=== PATIENT | male | born 1940 | race Caucasian/White ===

== ENCOUNTER → 2021-04-01 14:34 | Outpatient (CLI) | payer MEDICARE, SELFPAY ==
--- NOTE | ~2021-04-01 | XR_ITS ---
EXAMINATION: XR lumbar spine 2-3V DATE: 04/01/2021 14:49 INDICATION: Low back pain. TECHNIQUE: Anteroposterior and lateral views of the lumbar spine, and cone-down lateral view of the l umbosacral junction were obtained. COMPARISON: Contrast dated 04/2607 and lumbar spine MR dated 05/15/2007 FINDINGS: Minimal lumbar dextrocurvature. 2 mm retrolisthesis L2 on L3. Vertebral body heights are normal. Mode rate disc height loss at L4-L5 with central disc calcification. Moderate to severe disc height loss w ith vacuum phenomena at the remaining lumbar levels. Additional mild to moderate disc height loss at the visualized lower thoracic spine. Multilevel moderate to severe lower lumbar predominant facet ost eoarthritis. Sacral arches are intact. Mild bilateral sacral iliac osteoarthritis. Atherosclerotic ab dominal aorta. IMPRESSION: 1. Progression of now severe lumbar spondylosis. Reviewed, dictated and finalized at location A.
== END ==
PROVIDERS: PCP Family Medicine Adolescent Medicine; Visit Provider Physician Assistant
DX: M54.5 Low back pain (principal); M47.816 Spondylosis without myelopathy or radiculopathy, lumbar region
CPT/HCPCS: 72100

== ENCOUNTER → 2021-05-17 12:29 | Outpatient (CLI) | payer MEDICARE, SELFPAY ==
--- NOTE | ~2021-05-17 | XR_ITS ---
XR chest 2V 05/17/2021 12:38 Indication: Hypertension. Lymphadenopathy. Procedure: 2 view chest Comparison: No prior studies for comparison. Findings: Heart size normal. No focal air space disease, pulmonary edema, pleural effusion or suspect ed pneumothorax. There is diffuse idiopathic skeletal hyperostosis (DISH) of the thoracic spine. Impression: 1: No acute cardiopulmonary disease. Reviewed, dictated and finalized at location A. 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
== END ==
PROVIDERS: PCP Family Medicine Adolescent Medicine; Visit Provider Family Medicine Adolescent Medicine
DX: L29.9 Pruritus, unspecified (principal); I10 Essential (primary) hypertension
CPT/HCPCS: 71046

== ENCOUNTER → 2021-06-22 14:17 | Outpatient (CLI) | payer MEDICARE, SELFPAY ==
--- NOTE | ~2021-06-22 | MR_ITS ---
EXAMINATION: MR thoracic spine wo con EXAM DATE: 06/22/2021 15:20 INDICATION: Preoperative examination for spine stimulator. Chronic back pain. TECHNIQUE: Multi-sequential, multiplanar MR images of the thoracic spine were obtained without contra st. Sagittal T1, T2, T2 fat saturation, axial T2 weighted images reviewed. There is no prior study for comparison. FINDINGS: Moderate diffuse loss of thoracic disc height and probably partial osseous fusion of some o f the levels. Thoracic spinal canal is widely patent. Mild lumbar dextroscoliosis, thoracic levoscoli osis. There are scattered focal signal abnormalities consistent with hemangiomata, otherwise without focal suspicious marrow signal abnormalities. There is mild to moderate thoracic facet arthropathy, c ausing no more than mild neural foraminal stenosis at any given level. Paraspinal soft tissue is unre markable. IMPRESSION: 1. Mild thoracolumbar scoliosis. 2. Moderate in the lower lumbar disc disease, mild to moderate arthropathy. Reviewed, dictated and finalized at location B. PPER
== END ==
PROVIDERS: PCP Family Medicine Adolescent Medicine; Visit Provider Pain Medicine Pain Medicine
DX: Z01.818 Encounter for other preprocedural examination (principal); M47.816 Spondylosis without myelopathy or radiculopathy, lumbar region; M41.9 Scoliosis, unspecified
CPT/HCPCS: 72146

== ENCOUNTER → 2021-08-25 07:32 | Outpatient (CLI) | payer MEDICARE, SELFPAY ==
--- NOTE | ~2021-08-25 | US_ITS ---
US abdomen limited DATE: 08/25/2021 08:36 INDICATION: Right upper quadrant abdominal pain, upset stomach TECHNIQUE: Real-time imaging of liver, pancreas, gallbladder areas COMPARISON: None FINDINGS: The pancreas is partially obscured by bowel gas, not optimally evaluated. Hepatic steatosis. Normal hepatopedal portal venous flow direction. No gallstones or gallbladder wall thickening or abnormal pericholecystic fluid collection. Negative s onographic Hudson's sign. The common bile duct measures 4 mm, normal. Incidentally noted is mild right hydronephrosis. IMPRESSION: Pancreas is obscured by bowel gas Mild right hydronephrosis Reviewed, dictated and finalized at Location A. US abdomen limited Reviewed, dictated and finalized at location B. 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
== END ==
PROVIDERS: PCP Family Medicine Adolescent Medicine; Visit Provider Physician Assistant
DX: R10.11 Right upper quadrant pain (principal); N13.30 Unspecified hydronephrosis
CPT/HCPCS: 76705

== ENCOUNTER → 2021-09-09 14:48 | Outpatient (CLI) | payer MEDICARE, SELFPAY ==
--- NOTE | ~2021-09-09 | US_ITS ---
US renal BI 09/09/2021 15:06 Procedure: Realtime transabdominal ultrasound of the kidneys and bladder. Indication: Stage III chronic kidney disease. Comparison: 08/25/2021 Findings: Renal echotexture is normal bilaterally without contour deforming mass or renal calculus. T he right kidney measures 10.7 cm and left kidney measures 12.3 cm. There are left renal cysts, larges t measuring 3.8 cm maximum dimension. There is mild right hydronephrosis. Bladder within normal limit s. Impression: 1: Mild right hydronephrosis. 2: Left renal cysts. Reviewed, dictated and finalized at location A. T CUSTODIAN Impression: 1: Mild right hydronephrosis. 2: Left renal cysts.
== END ==
PROVIDERS: PCP Family Medicine Adolescent Medicine; Visit Provider Family Medicine Adolescent Medicine
DX: N18.31 Chronic kidney disease, stage 3a (principal); N40.0 Benign prostatic hyperplasia without lower urinary tract symptoms; N13.30 Unspecified hydronephrosis; N28.1 Cyst of kidney, acquired
CPT/HCPCS: 76775

== ENCOUNTER → 2022-01-19 13:39 | Outpatient (CLI) | payer MEDICARE, SELFPAY ==
--- NOTE | ~2022-01-19 | XR_ITS ---
XR thoracic spine 3V DATE: 01/19/2022 14:35 INDICATION: Spinal cord stimulator TECHNIQUE: AP, lateral and swimmer views COMPARISON: 06/22/2021 MR thoracic spine FINDINGS: There is osteopenia. Mild levoscoliosis of the lower thoracic and lumbar spine. There is mild degenerative spurring of the thoracic spine. No fracture or bone destruction is detected. The thoracic pedicles appear intact. No paraspinal soft tissue thickening. Thoracic spine neurostimulator lead overlies the left posterolateral thoracic spinal canal at the T8 level. IMPRESSION: Osteopenia Mild degenerative spurring Mild scoliosis Thoracic spine neurostimulator lead posterolaterally on the left at approximately T8 Reviewed, dictated and finalized at location A. IMPRESSION: Osteopenia Mild degenerative spurring Mild scoliosis Thoracic spine neurostimulator lead posterolaterally on the left at approximate ly T8
--- NOTE | ~2022-01-19 | XR_ITS ---
XR lumbar spine min 4V DATE: 01/19/2022 14:35 INDICATION: Lumbar radiculopathy TECHNIQUE: AP, lateral, bilateral oblique and coned lateral lumbosacral views COMPARISON: 03/28/2021 lumbar spine FINDINGS: There is osteopenia. Probable hemangioma of T10. There is mild dextro scoliosis of the lumbar spine. There is severe degenerative disc disease throughout the lumbar spine. There is associated minimal re trolisthesis at L2-3. No fracture or bone destruction is evident. The lumbar pedicles appear intact. The sacroiliac joints are unremarkable. Battery pack overlies the left back, with neurostimulator lead wires extending toward the thoracic sp inal canal. Abdominal aortic calcification without evidence of aneurysm. IMPRESSION: Osteopenia T10 probable hemangioma Severe degenerative disc disease of the lumbar and lumbosacral spine Reviewed, dictated and finalized at location A.
== END ==
PROVIDERS: PCP Family Medicine Adolescent Medicine; Visit Provider Physician Assistant
DX: M54.16 Radiculopathy, lumbar region (principal); Z96.89 Presence of other specified functional implants; M85.88 Other specified disorders of bone density and structure, other site; M51.37 Other intervertebral disc degeneration, lumbosacral region; Z96.82 Presence of neurostimulator; M41.84 Other forms of scoliosis, thoracic region
CPT/HCPCS: 72072; 72110

== ENCOUNTER 2022-03-01 13:22 | Outpatient (CLI) | payer MEDICARE, SELFPAY ==
--- NOTE | 2022-03-01 14:21 | WPDPFTINT ---
PFT Procedure Performed PFT Procedure Performed Spirometry w/o Bronchodil PFT Interpretation This is a pulmonary function test with spirometry. The test was performed and results interpreted in accordance with the 2019 and 2005 ATS/ERS Task Force guidelines respectively using the Global Lung Function Initiative-2012 reference equations. Patient demonstrated good effort and cooperation. Reproducibility criteria were met. The quality of the spirometry maneuver was Grade A. Findings: Spirometry: the contour the expiratory flow tracing is normal. The contour of the inspiratory flow tracing is incomplete in all efforts and cannot be evaluated. The FVC is 3.37 L, 89% predicted. The FEV1 is 2.80 L, 100% predicted. The FEV1: FVC ratio was 83%. Impression: The inspiratory flow tracing is incomplete and cannot be evaluated. The spirometry is normal without evidence of an obstructive abnormality. There are no prior studies for comparison
== END 2022-03-01 13:23 | disposition home or self-care (01) ==
LOC: ANHPFT 13:23
PROVIDERS: PCP Family Medicine Adolescent Medicine; Visit Provider Family Medicine Adolescent Medicine
DX: R06.00 Dyspnea, unspecified (principal)
CPT/HCPCS: 94375

== ENCOUNTER 2023-12-17 09:37 | Outpatient (CLI) | payer MEDICARE, SELFPAY ==
--- NOTE | ~2023-12-17 | US_ITS ---
US renal BI Ordering provider: Harry Sotelo MD History: . N18.32 - Chronic kidney disease, stage 3b . Comparison: None. Technique: Ultrasound bilateral kidneys. Findings: RIGHT KIDNEY: Measures 9.9x 4.5x 5.6 cm in length which is normal in size. No renal cysts. No renal m ass. Echogenic foci are noted which is suggestive of stones with the largest measures 0.4x 0.6 x 0.4 cm. Otherwise, normal echotexture and contour. No hydronephrosis. Normal renal cortical thickness. LEFT KIDNEY: Measures 10.9x 5.4x 5.8 cm in length which is normal in size. Cysts seen measuring 2.5 x 2.1 x 2 cm The lateral inferior aspect and measuring 4.5 x 3.8 x 4.2 cm in the medial inferior. No r enal mass or visualized echogenic stones. Otherwise, normal echotexture and contour. No hydronephrosi s. Normal renal cortical thickness. BLADDER: Normal. IMPRESSION: Stone in the right kidney. Cysts in the left kidney. Reviewed, dictated and finalized at location A.
== END 2023-12-17 09:38 ==
LOC: MICIMG 09:38
PROVIDERS: PCP Family Medicine Adolescent Medicine; Visit Provider Internal Medicine Nephrology
DX: N18.32 Chronic kidney disease, stage 3b (principal); N28.1 Cyst of kidney, acquired; N20.0 Calculus of kidney
CPT/HCPCS: 76775

== ENCOUNTER 2024-03-15 09:33 | Emergency (ER) | payer MEDICARE, SELFPAY ==
--- NOTE | 2024-03-15 09:36 | ED.GENADULT ---
HPI - General Adult General Chief complaint: Skin/Abscess/Foreign Body Stated complaint: L HAND SKIN TEAR Time Seen by Provider: 03/15/24 09:45 Source: patient, RN notes reviewed and old records reviewed Mode of arrival: ambulatory Limitations: no limitations History of Present Illness HPI narrative: 83-year-old male presents to the [facility] with complaints of a skin tear to his left hand. States that he was on a cruise tripped and fell cutting on piece of metal. Occurred March 09, 6 days ago Onset (ago): day(s) (6) Treatments prior to arrival: other (Wound cleaning and Vaseline) Related Data Home Medications Medication Instructions Recorded Confirmed aspirin 81 mg tablet,delayed 81 mg PO DAILY 02/14/21 03/15/24 release coenzyme Q10 100 mg capsule 100 mg PO DAILY 02/14/21 03/15/24 (CoQ-10) acetaminophen 500 mg capsule 1,000 mg PO BID PRN Pain (Scale 09/02/21 03/15/24 Score 4-6) melatonin 10 mg capsule 10 mg PO QHS 09/02/21 03/15/24 carvedilol 12.5 mg tablet 12.5 mg PO BID 10/16/23 03/15/24 cetirizine 10 mg capsule (Zyrtec) 10 mg PO DAILY PRN allergies 10/16/23 03/15/24 fluticasone propionate 50 2 spray intranasal DAILY 10/16/23 03/15/24 mcg/actuation nasal spray,suspension (Flonase Allergy Relief) gabapentin 100 mg capsule 100 mg PO DAILY 10/16/23 03/15/24 iron 18 mg tablet 18 mg PO DAILY 10/16/23 03/15/24 qbuqoqpe-yl-futyb 300 mcg-K 60 1 tablet PO DAILY 10/16/23 03/15/24 mcg-lycop 600 mcg-lutein 300 mcg tablet (Centrum Silver Men) psyllium 500 mg capsule 0.52 g PO TID 10/16/23 03/15/24 fluticasone fur. 100 mcg-umeclid 1 inh inhalation DAILY 02/19/24 03/15/24 62.5 mcg-vilant 25 mcg inhalat.powder (Trelegy Ellipta) Allergies Allergy/AdvReac Type Severity Reaction Status Date / Time No Known Allergies Allergy Verified 03/15/24 09:40 Review of Systems Review of Systems: All systems reviewed & are unremarkable except as noted in HPI and below Constitutional: Constitutional: Reports no additional constitutional complaints Eyes: Eyes: Reports no additional eye complaints ENT: Reports system reviewed and no additional complaints, except as documented Cardiovascular: Cardiovascular: Reports no additional cardiovascular complaints, Denies chest pain and Denies dyspnea Respiratory: Respiratory: Reports no additional respiratory complaints, Denies chest congestion, Denies cough and Denies dyspnea Gastrointestinal: Gastrointestinal: Reports no additional gastrointestinal complaints, Denies abdominal pain, Denies nausea and Denies vomiting Musculoskeletal: Musculoskeletal: Reports no additional musculoskeletal complaints Integumentary/Breasts: Skin/Breast: Reports as per HPI and Reports wounds (Skin tear dorsal left hand, or by 1 cm. Already healing) Neurologic: Reports system reviewed and no additional complaints, except as documented Psychiatric: Psychiatric: Reports no additional psychiatric complaints Allergic/Immunologic: Allergic/Immunologic: Reports no additional allergic/immunologic complaints PMFSH Past Medical History Medical History Aortic atherosclerosis BPH (benign prostatic hyperplasia) Chronic anemia Coronary artery disease with stable angina pectoris Diverticula of intestine Diverticulitis Hepatic steatosis Ultrasound 08/25/2021. Presbycusis Pure hypercholesterolemia, unspecified Surgical History Surgical History History of appendectomy Family History Family History Father Cerebrovascular accident Sibling FH: throat cancer Diabetes mellitus Mother Carcinoma of colon Hypertension Grandparent Diabetes mellitus Social History Social History Smoking status: Never smoker Second hand tobacco smoke exposure: No Alcohol intake: c
[2024-03-15 09:45] VITALS: BP 148/62; PULSE 65; RESP 18; TEMP 36.6; O2SAT 100
== END 2024-03-15 10:09 | disposition home or self-care (01) ==
PROVIDERS: Emergency Provider Nurse Practitioner; PCP Family Medicine Adolescent Medicine
DX: S61.412A Laceration without foreign body of left hand, initial encounter (principal); W19.XXXA Unspecified fall, initial encounter; I70.0 Atherosclerosis of aorta; N40.0 Benign prostatic hyperplasia without lower urinary tract symptoms; I25.110 Atherosclerotic heart disease of native coronary artery with unstable angina pectoris; K76.0 Fatty (change of) liver, not elsewhere classified; E78.00 Pure hypercholesterolemia, unspecified; D64.9 Anemia, unspecified; Z79.82 Long term (current) use of aspirin
CPT/HCPCS: 99213; G0463

== ENCOUNTER 2024-03-31 10:54 | Outpatient (CLI) | payer MEDICARE, SELFPAY ==
--- NOTE | ~2024-03-31 | XR_ITS ---
3 VIEWS MANDIBLE Ordering provider: Tamiko Middleton APRN History: . R22.0 - Localized swelling, mass and lump, head . Comparison: None. FINDINGS: BONES: No acute fracture or dislocation. Areas of increased opacification in the mandible was in the area of the tooth filling in the lower mandible most likely post procedure.If still suspicious CT is advised. TEMPOROMANDIBULAR JOINTS: Normal. SOFT TISSUES: Normal. IMPRESSION: NO ACUTE OSSEOUS ABNORMALITY OF THE MANDIBLE. IF CLINICAL CONCERN IS STILL PRESENT, CT IS ADVISED. Reviewed, dictated and finalized at location A. IMPRESSION: NO ACUTE OSSEOUS ABNORMALITY OF THE MANDIBLE. IF CLINICAL CONCERN IS STILL PRES ENT, CT IS ADVISED.
== END 2024-03-31 10:55 | disposition home or self-care (01) ==
PROVIDERS: PCP Nurse Practitioner Family; Visit Provider Nurse Practitioner Family
DX: R22.0 Localized swelling, mass and lump, head (principal); W19.XXXA Unspecified fall, initial encounter
CPT/HCPCS: 70110

== ENCOUNTER 2024-04-07 08:08 | Outpatient (CLI) | payer MEDICARE, SELFPAY ==
--- NOTE | ~2024-04-07 | CT_ITS ---
CT facial bones wo con Ordering provider: Tamiko Middleton APRN History: . Localized swelling to the right cheek x 3 weeks . Comparison: None. Technique: Thin slice axial CT of the facial bones was performed without contrast. Coronal and sagit mary reformatted images were also obtained. . Automated exposure control and iterative reconstruction technique were employed. The dose-length product was 369.57 mGy-cm. FINDINGS: PARANASAL SINUSES: Right frontal sinus disease. Bilateral ethmoid sinus disease. Right maxillary sinu s polyp. BONES: No facial fracture including no nasal bone fracture. ORBITS AND SUPERFICIAL SOFT TISSUES: The optic globes and orbits are normal. The superficial soft tis sues are normal. VISUALIZED MASTOIDS: Well aerated. LIMITED VISUALIZED BRAIN PARENCHYMA: Normal. IMPRESSION: No facial fracture. No definite abnormality seen in the right cheek area. Reviewed, dictated and finalized at location A.
== END 2024-04-07 08:09 | disposition home or self-care (01) ==
LOC: MICIMG 08:09
PROVIDERS: PCP Nurse Practitioner Family; Visit Provider Nurse Practitioner Family
DX: R22.0 Localized swelling, mass and lump, head (principal)
CPT/HCPCS: 70486

== ENCOUNTER 2024-06-12 11:38 | Outpatient (CLI) | payer MEDICARE, SELFPAY ==
--- NOTE | ~2024-06-12 | XR_ITS ---
AP and lateral views of the left hip Clinical history: Pain Findings: No acute fracture or dislocation is seen. Osseous alignment is anatomic. Left hip joint is intact. There are degenerative change of the visualized lower lumbar spine. Soft tissues are unremark able. Impression: Left hip joint intact. Degenerative change of the visualized lower lumbar spine. Reviewed, dictated and finalized at location . 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 Degenerative change of the visualized lower lumbar spine.
== END 2024-06-12 11:39 | disposition home or self-care (01) ==
LOC: MICIMG 11:38
PROVIDERS: PCP Nurse Practitioner Family; Visit Provider Family Medicine Adolescent Medicine
DX: M47.896 Other spondylosis, lumbar region (principal); M25.552 Pain in left hip
CPT/HCPCS: 73502

== ENCOUNTER 2024-10-17 12:52 | Outpatient (CLI) | payer MEDICARE, SELFPAY ==
--- NOTE | ~2024-10-17 | US_ITS ---
EXAMINATION: US renal BI DATE: 10/17/2024 13:09 INDICATION: Follow-up renal stones TECHNIQUE: Multiple ultrasound grayscale images of the kidneys were obtained. COMPARISON: 12/17/2023 FINDINGS: The right kidney measures 9.1 x 5.0 x 5.5 cm. The left kidney measures 12.5 x 7.0 x 4.9 cm. The kidne ys demonstrate normal echogenicity. There are couple anechoic cyst at the lower pole the left kidney measuring 3.2 cm and 2.7 cm. There is no hydronephrosis in either kidney. No stones identified. The bladder is normal. IMPRESSION: 1. A couple cysts at the lower pole the left kidney. Otherwise normal kidneys with no hydronephrosis . Reviewed, dictated and finalized at location B. IMPRESSION: 1. A couple cysts at the lower pole the left kidney. Otherwise normal kidneys with no hydronephrosis.
== END 2024-10-17 12:53 | disposition home or self-care (01) ==
LOC: MICIMG 12:52
PROVIDERS: PCP Family Medicine Adolescent Medicine; Visit Provider Internal Medicine Nephrology
DX: N20.0 Calculus of kidney (principal); N18.32 Chronic kidney disease, stage 3b; N28.1 Cyst of kidney, acquired
CPT/HCPCS: 76775

== ENCOUNTER 2025-05-07 13:12 | Outpatient (CLI) | payer MEDICARE, SELFPAY ==
--- NOTE | ~2025-05-07 | US_ITS ---
Examination: Ultrasound of the retroperitoneum including kidneys and bladder. 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 . Comparison: Renal ultrasound 10/17/2024 Findings: Right kidney: 9 cm. Normal echogenicity. No collecting system dilatation. No shadowing calculi. Left kidney: 12 cm. Normal echogenicity. No collecting system dilatation. No shadowing calculi. 4.5 cm cyst. 2.7 cm cysts. Urinary bladder: No wall thickening or focal abnormality. IMPRESSION: 1. No acute findings. Reviewed, dictated and finalized at location R. IMPRESSION: 1. No acute findings.
== END 2025-05-07 13:13 | disposition home or self-care (01) ==
LOC: MICIMG 13:13
PROVIDERS: PCP Nurse Practitioner Family; Visit Provider Internal Medicine Nephrology
DX: I12.9 Hypertensive chronic kidney disease with stage 1 through stage 4 chronic kidney disease, or unspecified chronic kidney disease (principal); E79.0 Hyperuricemia without signs of inflammatory arthritis and tophaceous disease
CPT/HCPCS: 76770